=== PATIENT | male | born 1955 | race Caucasian/White ===

== ENCOUNTER 2017-01-04 12:36 | Outpatient (CLI) | payer BC ==
[2017-01-04 16:04] LABS: Glucose, Urine (Dipstick) Negative (Negative); Leukocyte Large (Negative); Nitrite Negative (Negative); Protein, Urine (Dipstick) 100 mg/dL (Neg-Trace); Specific Gravity, Urine 1.015 (1.005-1.030); Urobilinogen 0.2 mg/dL (0.2-1.0); pH, Urine 5.5 (5.0-9.0)
[2017-01-04 16:05] LABS: Bilirubin Negative (Negative); Blood, Urine Moderate (Negative)
== END 2017-01-04 12:37 | disposition home or self-care (01) ==
LOC: MADLAB 12:36
PROVIDERS: ATTEND Internal Medicine Hematology & Oncology
DX: N39.0 Urinary tract infection, site not specified (principal)
CPT/HCPCS: 36415; 81003; 87077; 87086; 87186

== ENCOUNTER 2017-02-09 16:34 | Outpatient (CLI) | payer BC ==
[2017-02-09 17:31] LABS: Clarity Clear (Clear); Leukocyte Moderate (Negative); Nitrite Positive (Negative); Protein, Urine (Dipstick) Trace mg/dL (Neg-Trace)
[2017-02-09 17:32] LABS: Bacteria/HPF 3+ HPF (None Seen); Bilirubin Negative (Negative); Blood, Urine Large (Negative); Glucose, Urine (Dipstick) Negative (Negative); RBC/HPF GREATER THAN 50-TNTC HPF (0-3)
== END 2017-02-09 16:35 | disposition home or self-care (01) ==
LOC: MADLAB 16:34
PROVIDERS: ATTEND Family Medicine
DX: R30.0 Dysuria (principal)
CPT/HCPCS: 81001; 87077; 87086; 87186